=== PATIENT | female | born 2005 | race Two or more races ===

== ENCOUNTER 2024-10-14 18:55 | Emergency (ER) | payer OTHER ==
[~2024-10-14] VITALS: Ht 160 cm; Wt 116.1 kg
[2024-10-14] MEDS ORDERED: MACROBID 100 M100 MG (19:10)
[2024-10-14] MEDS ORDERED: PRENATABS FA T1 EACH (19:10)
[2024-10-14] MEDS ORDERED: ONDANSETRON HCL 2 MG/ML VIAL IV ONE (20:00)
[2024-10-14] MEDS ORDERED: FAMOTIDINE/PF 20 MG/2 ML VIAL IV ONE (20:00)
[2024-10-14] MEDS ORDERED: ONDANSETRON HCL 2 MG/ML VIAL ONE (20:11)
[2024-10-14] MEDS ORDERED: FAMOTIDINE/PF 20 MG/2 ML VIAL ONE (20:12)
[2024-10-14 20:42] LABS: HEMATOCRIT 37.5 % (36.0-45.00); HEMOGLOBIN 12.6 g/dL (12.0-15.00); MEAN CELL VOLUME 94.1 fL (80.00-100.00); MEAN CORPUSCULAR HEMOGLOBIN 31.5 pg (27.00-32.0); MEAN CORPUSCULAR HGB CONC 33.5 g/dl (32.0-36.0); PLATELET COUNT 307 K/uL (150-450); RED BLOOD COUNT 3.98 M/uL (4.00-6.00); RED CELL DISTRIBUTION WIDTH 17.1 % (11.5-14.5)
[2024-10-14 20:54] LABS: URINE APPEARANCE Cloudy; URINE BILIRRUBIN Negative (NEGATIVE); URINE BLOOD Large; URINE COLOR Dark Yellow; URINE GLUCOSE Negative (NEGATIVE); URINE KETONE Trace (NEGATIVE); URINE LEUKOCYTE Small; URINE NITRATE Negative; URINE PROTEIN 30 (NEGATIVE)
[2024-10-14 20:57] LABS: URINE BACTERIA 7649.6 uL (0.0-1933); URINE EPITHELIAL CELLS 66.8 uL (0.0-38.8); URINE RBC 126.9 uL (0.0-20.8); URINE WBC 15.8 uL (0.0-23.2)
[2024-10-14 21:48] LABS: URINE MUCUS MODERATE
== END 2024-10-14 22:57 ==
LOC: ER 18:57
PROVIDERS: General Practice
DX: O20.8 Other hemorrhage in early pregnancy (principal); Z3A.01 Less than 8 weeks gestation of pregnancy; F41.8 Other specified anxiety disorders; N83.292 Other ovarian cyst, left side

== ENCOUNTER 2024-11-28 20:45 | Emergency (ER) | payer OTHER ==
[~2024-11-28] VITALS: Ht 160 cm; Wt 117.9 kg
[~2024-11-28 20:45] MED LIST: MACROBID 100 M100 MG; PRENATABS FA T1 EACH
[2024-11-28] MEDS ORDERED: VISTARIL50 MG/ML PO (20:53)
[2024-11-28] MEDS ORDERED: ZOFRAN8 MG (20:54)
[2024-11-28] MEDS ORDERED: ONDANSETRON HCL 2 MG/ML VIAL ONE (22:08)
[2024-11-28] MEDS ORDERED: FAMOTIDINE/PF 20 MG/2 ML VIAL ONE (22:08)
[2024-11-28] MEDS ORDERED: 0.9 % SODIUM CHLORIDE 1,000 ML IV SCH (22:15)
[2024-11-28] MEDS ORDERED: FAMOTIDINE/PF 20 MG/2 ML VIAL IV PUSH ONE (22:15)
[2024-11-28] MEDS ORDERED: ONDANSETRON HCL 2 MG/ML VIAL IV ONE (22:15)
[2024-11-28 23:20] LABS: HEMATOCRIT 38.3 % (36.0-45.00); HEMOGLOBIN 13.3 g/dL (12.0-15.00); MEAN CELL VOLUME 94.1 fL (80.00-100.00); MEAN CORPUSCULAR HEMOGLOBIN 32.6 pg (27.00-32.0); MEAN CORPUSCULAR HGB CONC 34.7 g/dl (32.0-36.0); PLATELET COUNT 272 K/uL (150-450); RED BLOOD COUNT 4.07 M/uL (4.00-6.00); RED CELL DISTRIBUTION WIDTH 14.5 % (11.5-14.5)
[2024-11-28 23:41] LABS: CALCIUM 9.1 mg/dL (8.5-10.1); CREATININE SERUM 0.6 mg/dL (0.55-1.02); GFR 126.19; POTASSIUM 3.96 mEq/L (3.5-5.1)
[2024-11-29 01:42] LABS: PH,URINE 6.5 (5.0-8.0); URINE APPEARANCE Clear; URINE BILIRRUBIN Negative (NEGATIVE); URINE BLOOD Negative; URINE COLOR Yellow; URINE GLUCOSE Negative (NEGATIVE); URINE LEUKOCYTE Trace; URINE NITRATE Negative; URINE PROTEIN Trace (NEGATIVE)
[2024-11-29 01:45] LABS: URINE BACTERIA 4383.1 uL (0.0-1933); URINE RBC 8.5 uL (0.0-20.8); URINE WBC 33.2 uL (0.0-23.2)
[2024-11-29 01:51] LABS: URINE CAST 0.58 uL (0.0-1.40); URINE KETONE >=160 (NEGATIVE)
== END 2024-11-29 04:49 | disposition home or self-care (01) ==
LOC: ER 20:46
PROVIDERS: Emergency Medicine
DX: O21.0 Mild hyperemesis gravidarum (principal); Z3A.13 13 weeks gestation of pregnancy

== ENCOUNTER 2024-12-04 09:38 | Emergency (ER) | payer OTHER ==
[~2024-12-04] VITALS: Ht 160 cm; Wt 117.9 kg
[~2024-12-04 09:38] MED LIST changes: +VISTARIL50 MG/ML PO; +ZOFRAN8 MG
[2024-12-04 10:48] LABS: HEMATOCRIT 37.1 % (36.0-45.00); HEMOGLOBIN 12.9 g/dL (12.0-15.00); MEAN CELL VOLUME 92.5 fL (80.00-100.00); MEAN CORPUSCULAR HEMOGLOBIN 32.2 pg (27.00-32.0); MEAN CORPUSCULAR HGB CONC 34.8 g/dl (32.0-36.0); PLATELET COUNT 280 K/uL (150-450); RED BLOOD COUNT 4.01 M/uL (4.00-6.00); RED CELL DISTRIBUTION WIDTH 14.6 % (11.5-14.5)
== END 2024-12-04 14:38 | disposition home or self-care (01) ==
LOC: ER 09:39
PROVIDERS: Emergency Medicine
DX: O20.8 Other hemorrhage in early pregnancy (principal); Z3A.14 14 weeks gestation of pregnancy

== ENCOUNTER 2025-01-12 15:16 | Outpatient (CLI) | payer OTHER | END 2025-01-12 15:17 | disposition home or self-care (01) | LOC: PRENATAL 15:16 | PROVIDERS: ATTEND Obstetrics & Gynecology Maternal & Fetal Medicine | DX: O44.00 Complete placenta previa NOS or without hemorrhage, unspecified trimester (principal); O99.210 Obesity complicating pregnancy, unspecified trimester; Z3A.20 20 weeks gestation of pregnancy ==

== ENCOUNTER 2025-03-11 08:44 | Outpatient (CLI) | payer OTHER | END 2025-03-11 08:48 | disposition home or self-care (01) | LOC: PRENATAL 08:44 | PROVIDERS: ATTEND Obstetrics & Gynecology Maternal & Fetal Medicine | DX: O26.849 Uterine size-date discrepancy, unspecified trimester (principal); O36.8199 Decreased fetal movements, unspecified trimester, other fetus; O99.210 Obesity complicating pregnancy, unspecified trimester; Z3A.28 28 weeks gestation of pregnancy ==

== ENCOUNTER 2025-04-22 11:39 | Outpatient (CLI) | payer OTHER | END 2025-04-22 11:42 | disposition home or self-care (01) | LOC: PRENATAL 11:39 | PROVIDERS: ATTEND Obstetrics & Gynecology Maternal & Fetal Medicine | DX: O26.849 Uterine size-date discrepancy, unspecified trimester (principal); O36.8130 Decreased fetal movements, third trimester, not applicable or unspecified; O99.210 Obesity complicating pregnancy, unspecified trimester; Z3A.33 33 weeks gestation of pregnancy ==

== ENCOUNTER 2025-05-01 23:31 | Outpatient (CLI) | payer OTHER ==
[2025-05-01 23:25] VITALS: BP 100/65
[2025-05-01] MEDS ORDERED: RINGERS SOLUTION,LACTATED 1,000 ML IV SCH (23:45)
[2025-05-02 00:32] LABS: BASO % 0.3 % (0.1-1.2); EOS # 0.10 (0.04-0.54); EOS % 1.0 % (0.7-7.0); LYMPH # 0.63 (1.18-3.74); LYMPH % 6.5 % (19.3-53.1); MEAN PLATELET VOLUME 9.50 fl (9.4-12.4); MONO # 0.97 (0.24-0.82); MONO % 10.1 % (4.7-12.5); NEUT # 7.71 (1.56-6.13); NEUT % 79.9 % (34.0-71.1); RED CELL DISTRIBUTION WIDTH 12.5 % (11.6-14.4)
[2025-05-02 00:33] LABS: URINE APPEARANCE Cloudy; URINE BILIRRUBIN Small (NEGATIVE); URINE BLOOD Negative; URINE COLOR Dark Yellow; URINE GLUCOSE Negative (NEGATIVE); URINE LEUKOCYTE Small; URINE NITRATE Negative; URINE PROTEIN 30 (NEGATIVE); URINE UROBILINOGEN 1.0 E.U./dl
[2025-05-02 00:48] LABS: URINE KETONE >=160 (NEGATIVE)
[2025-05-02 00:54] LABS: URINE EPITHELIAL CELLS LOADED /HPF; URINE RBC 0-3 /HPF
[2025-05-02 00:56] LABS: URINE BACTERIA MANY; URINE CRYSTALS MANY /HPF; URINE MUCUS HEAVY
[2025-05-02 01:35] LABS: COVID-19 AG POSITIVE (NEGATIVE)
[2025-05-02] MEDS ORDERED: ACETAMINOPHEN 500 MG GEL..CAP PO ONE ×2 (01:35→02:15)
[2025-05-02] MEDS ORDERED: PROMETHAZINE HCL 50 MG/ML AMPUL IM ONE ×2 (01:36→02:15)
[2025-05-02 03:14] VITALS: BP 94/51
[2025-05-02] MEDS ORDERED: FAMOTIDINE/PF 20 MG/2 ML VIAL IV PUSH ONE (05:20)
[2025-05-02 07:34] VITALS: BP 129/57
[2025-05-02 12:16] VITALS: BP 121/59
[2025-05-02 13:30] VITALS: BP 121/59
== END 2025-05-02 13:37 | disposition home or self-care (01) ==
LOC: OBS/DEL 23:31
PROVIDERS: Obstetrics & Gynecology; ATTEND Specialist
DX: O36.8130 Decreased fetal movements, third trimester, not applicable or unspecified (principal); Z3A.35 35 weeks gestation of pregnancy

== ENCOUNTER 2025-05-13 15:31 | Inpatient (IN) | payer OTHER ==
[~2025-05-13] VITALS: Ht 160 cm; Wt 125.2 kg
[2025-05-13 12:47] LABS: BASO % 0.5 % (0.1-1.2); EOS # 0.15 (0.04-0.54); EOS % 1.4 % (0.7-7.0); LYMPH # 2.58 (1.18-3.74); LYMPH % 23.2 % (19.3-53.1); MEAN PLATELET VOLUME 9.70 fl (9.4-12.4); MONO # 0.74 (0.24-0.82); MONO % 6.7 % (4.7-12.5); NEUT # 7.15 (1.56-6.13); NEUT % 64.2 % (34.0-71.1); RED CELL DISTRIBUTION WIDTH 12.4 % (11.6-14.4)
[2025-05-13 12:50] LABS: URINE APPEARANCE Clear; URINE BILIRRUBIN Negative (NEGATIVE); URINE BLOOD Negative; URINE COLOR Yellow; URINE GLUCOSE Negative (NEGATIVE); URINE KETONE Trace (NEGATIVE); URINE LEUKOCYTE Small; URINE NITRATE Negative; URINE PROTEIN Negative (NEGATIVE); URINE UROBILINOGEN 0.2 E.U./dl
[2025-05-13 12:55] LABS: URINE BACTERIA 2425.0 uL (0.0-1933); URINE CAST 0.29 uL (0.0-1.40); URINE EPITHELIAL CELLS 58.7 uL (0.0-38.8); URINE RBC 2.3 uL (0.0-20.8); URINE WBC 18.1 uL (0.0-23.2)
[2025-05-13 13:09] LABS: INR 0.97
[2025-05-13 13:23] LABS: BAND MAN 1.0 %; EOSINOPHIL MAN 2.0 %; LYMPHOCYTE MAN 27.0 %; MONOCYTE MAN 8.0 %; NEUTROPHILS MAN 62.0 %
[2025-05-13 13:45] LABS: ALT/SGPT 24.0 U/L (12-78); AST/SGOT 24.0 U/L (15-37); BILIRUBIN TOTAL 0.37 mg/dL (0.3-1.2); BUN CREA RATIO 10.0 (7.0-25.0); CREATININE SERUM 0.49 mg/dL (0.55-1.02); GFR 159.42; GLOBULINA 3.7 G/DL (2.4-3.5); GLUCOSE FASTING 87.0 mg/dL (65-100); OSMOLALITY SERUM 274.0 MOSM/KG (275-295)
[2025-05-21 03:16] VITALS: BP 107/70
[2025-05-21] MEDS ORDERED: ERYTHROMYCIN BASE OPHT 1GM EACH TUBE OP ONE (07:22)
[2025-05-21] MEDS ORDERED: OXYTOCIN 10 UNITS/ML VIAL ONE (07:22)
[2025-05-21] MEDS ORDERED: CEFAZOLIN SODIUM 1,000 MG VIAL ONE ×2 (07:34→14:47)
[2025-05-21] MEDS ORDERED: MORPHINE SULFATE 4 MG/ML CARTRIDGE IV PRN (13:45)
[2025-05-21] MEDS ORDERED: RINGERS SOLUTION,LACTATED 1,000 ML IV SCH (13:45)
[2025-05-21] MEDS ORDERED: CEFAZOLIN SODIUM 1,000 MG VIAL IV SCH (14:00)
[2025-05-21 16:35] VITALS: BP 127/81
[2025-05-22] MEDS ORDERED: OxyCODONE HCL 5 MG TABLET (ROXICODONE) PO PRN (01:15)
[2025-05-22 01:22] VITALS: BP 106/59
[2025-05-22 02:43] LABS: BASO % 0.2 % (0.1-1.2); EOS # 0.05 (0.04-0.54); EOS % 0.3 % (0.7-7.0); LYMPH # 1.93 (1.18-3.74); LYMPH % 13.2 % (19.3-53.1); MEAN PLATELET VOLUME 9.80 fl (9.4-12.4); MONO # 1.24 (0.24-0.82); MONO % 8.5 % (4.7-12.5); NEUT # 11.26 (1.56-6.13); NEUT % 76.9 % (34.0-71.1); RED CELL DISTRIBUTION WIDTH 12.7 % (11.6-14.4)
[2025-05-22 08:46] VITALS: BP 126/74
[2025-05-22] MEDS ORDERED: ACETAMINOPHEN 500 MG GEL..CAP PO PRN (10:15)
[2025-05-22 20:08] VITALS: BP 100/64
[2025-05-23] VITALS: BP 96/64
[2025-05-23 08:00] VITALS: BP 90/60
[2025-05-23 16:10] VITALS: BP 92/60
[2025-05-24] VITALS: BP 111/70
[2025-05-24] MEDS ORDERED: IBUPROFEN800 MG PO (08:05)
[2025-05-24 08:20] VITALS: BP 103/71
== END 2025-05-24 10:29 | disposition home or self-care (01) | DRG 788 ==
LOC: OB/GYN 05-21 06:00 → O/R 05-21 06:00 → LDR 05-21 07:00 → OB/GYN 05-21 14:35
PROVIDERS: ADMIT Specialist; ATTEND Specialist
PROC: 4A1HXCZ Monitoring of Products of Conception, Cardiac Rate, External Approach (ICD-10-PCS; 2025-05-21)
PROC: 10D00Z1 Extraction of Products of Conception, Low, Open Approach (ICD-10-PCS; principal; 2025-05-21 07:00)
DX: O32.1XX0 Maternal care for breech presentation, not applicable or unspecified (principal); Z3A.38 38 weeks gestation of pregnancy; Z37.0 Single live birth